=== PATIENT | male | born 2000 | race Caucasian/White ===

== ENCOUNTER 2021-02-05 13:23 | Emergency (ER) | payer OTHER ==
[~2021-02-05] VITALS: Ht 175.3 cm; Wt 90.9 kg
[2021-02-05 13:26] VITALS: BP 134/87
== END 2021-02-05 16:07 | disposition home or self-care (01) ==
LOC: EMS 13:23
DX: J68.0 Bronchitis and pneumonitis due to chemicals, gases, fumes and vapors (principal); J31.0 Chronic rhinitis; F17.210 Nicotine dependence, cigarettes, uncomplicated
CPT/HCPCS: 99283; 99406; 71046; 71046-TC

== ENCOUNTER 2021-03-20 02:05 | Emergency (ER) | payer OTHER ==
[~2021-03-20] VITALS: Ht 185.4 cm; Wt 79.5 kg
[2021-03-20] MEDS ORDERED: AZITHROMYCIN 500 MG TABLET PO ONE (03:30)
[2021-03-20] MEDS ORDERED: LIDOCAINE/PF 1% 2 ML VIAL IM ONE (03:30)
[2021-03-20] MEDS ORDERED: CefTRIAXone SODIUM 1 GM/VIAL IM ONE (03:30)
[2021-03-20 04:30] VITALS: BP 133/75
[2021-03-20 04:44] LABS: APPEARANCE,URINE CLOUDY (CLEAR); GLUCOSE, URINE (UA) NEGATIVE (NEGATIVE); KETONES,URINE TRACE mg/dL (NEGATIVE); LEUKOCYTE ESTERASE ,URINE NEGATIVE (NEGATIVE); NITRATE,URINE NEGATIVE (NEGATIVE); OCCULT BLOOD,URINE NEGATIVE (NEGATIVE); PROTEIN,URINE POS 1+ (NEGATIVE)
[2021-03-20 04:48] LABS: BILIRUBIN,URINE PRELIM. POSITIVE (NEGATIVE)
[2021-03-20 04:57] LABS: BACTERIA,URINE Rare /HPF (None Seen); RBC,URINE 0-2 /HPF (0-2); SQUAMOUS EPITHELIAL CELL,UR Few /LPF (None Seen); WBC,URINE 0-2 /HPF (0-5)
[2021-03-20] MEDS ORDERED: IBUPROFEN 800 MG TABLET PO ONE (05:00)
== END 2021-03-20 05:00 | disposition home or self-care (01) ==
LOC: EMS 02:08
DX: N45.1 Epididymitis (principal)
CPT/HCPCS: 81001; 87491; 87591; 96372; 99283; A9575; J0696; J3490